=== PATIENT | male | born 1975 | race Caucasian/White ===

== ENCOUNTER 2020-02-14 11:10 | Day surgery (SDC) | payer BC ==
[2020-02-12 15:05] VITALS: BMI 23.6
[2020-02-14] MEDS ORDERED: MIDAZOLAM HCL 2 MG/2 ML SINGLE DOSE VIAL ONE ×2 (12:48→12:56)
[2020-02-14] MEDS ORDERED: PROPOFOL 20 ML ONE ×2 (12:52→12:57)
[2020-02-14] MEDS ORDERED: ceFAZolin SODIUM 1 GM VIAL ONE (12:59)
[2020-02-14] MEDS ORDERED: SODIUM CHLORIDE 0.9% P/F 10 ML VIAL IJ ONE (12:59)
[2020-02-14] MEDS ORDERED: ONDANSETRON 4 MG/2 ML VIAL ONE (13:04)
[2020-02-14] MEDS ORDERED: KETOROLAC TROMETHAMINE 30 MG/1 ML VIAL ONE (13:04)
[2020-02-14] MEDS ORDERED: DEXAMETHASONE SOD PHOSPHATE 4 MG/1 ML VIAL ONE (13:04)
[2020-02-14] MEDS ORDERED: BUPIVACAINE HCL/PF 0.25% (2.5MG/ML) 10 ML VIAL IJ ONE (13:25)
[2020-02-14] MEDS ORDERED: EPHEDRINE SULFATE/0.9% NACL/PF 50 MG/10 ML SYRINGE NR ONE (13:27)
[2020-02-14] MEDS ORDERED: GLYCOPYRROLATE 0.2 MG/1 ML VIAL ONE ×2 (13:28→13:29)
[2020-02-14] MEDS ORDERED: PROMETHAZINE HCL 25 MG/1 ML VIAL IVPUSH PRN (13:39)
[2020-02-14] MEDS ORDERED: ONDANSETRON 4 MG/2 ML VIAL IVPUSH PRN (13:39)
[2020-02-14] MEDS ORDERED: oxyCODONE HCL 5 MG TABLET PO PRN ×2 (13:39)
[2020-02-14 15:04] VITALS: PULSE 78
[2020-02-14 15:06] VITALS: BP 149/81; TEMP 98
== END 2020-02-14 15:05 | disposition home or self-care (01) ==
LOC: FASU 11:10
PROVIDERS: ATTEND Orthopaedic Surgery Hand Surgery
PROC: 01N40ZZ Release Ulnar Nerve, Open Approach (ICD-10-PCS; principal; 2020-02-14 13:06)
DX: G56.21 Lesion of ulnar nerve, right upper limb (principal); I10 Essential (primary) hypertension
CPT/HCPCS: 94760